=== PATIENT | male | born 1965 | race American Indian/Alaskan Native ===

== ENCOUNTER 2017-05-21 07:33 | Emergency (ER) | payer OTHER ==
[2017-05-21 07:41] VITALS: RESP 18
--- NOTE | 2017-05-21 08:09 | C.PDOC ---
History Of Present Illness 51 y/o male, hx of screws and rods in right le due to trauma many years ago c/o 2 days of pain to right freire and ankle after his 'legs gave out on him' and he fell. pt sts not taking anything for pain becuase he ran out. review of crew trainer aware shows pt filled a 30 day rx of oxycodone 15 mg on 05/05. pt denies any numbness or tingling. pt is poor historian and answers vaguely. Time Seen by Provider: 05/21/17 07:45 Chief Complaint (Nursing): Lower Extremity Problem/Injury History Per: Patient History/Exam Limitations: no limitations Onset/Duration Of Symptoms: Days (2) Current Symptoms Are (Timing): Still Present Severity: Moderate Recent travel outside of the [place]: No Past Medical History Reviewed: Historical Data, Nursing Documentation, Vital Signs Vital Signs: Last Vital Signs Temp 97.7 F 05/21/17 10:23 Pulse 99 H 05/21/17 10:23 Resp 18 05/21/17 10:23 BP 145/94 H 05/21/17 10:23 Pulse Ox 100 05/21/17 10:59 - Medical History PMH: No Chronic Diseases Surgical History: Appendectomy Other Surgeries: right leg screws in tib/fib and ankle Family History: States: Unknown Family Hx - Social History Hx Alcohol Use: No Hx Substance Use: No - Immunization History Hx Tetanus Toxoid Vaccination: Yes Hx Influenza Vaccination: Yes Hx Pneumococcal Vaccination: No Review Of Systems Musculoskeletal: Positive for: Leg Pain (right), Foot Pain (right) Neurological: Negative for: Weakness, Numbness Physical Exam - Physical Exam Appears: Non-toxic, No Acute Distress Skin: Normal Color, Warm, Dry Extremity: Other (tender along right tibia, tender with mild swelling to diffuse ankle. from at knee. ) Pulses: Left Dorsalis Pedis: Normal, Right Dorsalis Pedis: Normal Neurological/Psych: Oriented x3, Normal Speech, Normal Cognition ED Course And Treatment O2 Sat by Pulse Oximetry: 100 Medical Decision Making Medical Decision Making: pt c/o knee and ankle pain in leg with multiple screws; will get xray to f/o shift of hardware. crew trainer aware checked; see below. 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 05/05/2017 1 05/05/2017 OXYCODONE HCL 15 MG TABLET 90.0 30 DU JACKIE [id number] [facility] ([id number]) 0 67.5 [place] 04/07/2017 1 04/07/2017 OXYCODONE HCL 15 MG TABLET 90.0 30 DU JACKIE [id number] [facility] ([id number]) 0 67.[place] 03/07/2017 1 03/07/2017 OXYCODONE HCL 15 MG TABLET 90.0 30 DU JACKIE [id number] [facility] ([id number]) 0 67.5 [place] 02/04/2017 1 02/04/2017 OXYCODONE HCL 15 MG TABLET 90.0 30 DU JACKIE [id number] [facility] ([id number]) 0 67.5 [place] 01/06/2017 2 01/06/2017 OXYCODONE HCL 15 MG TABLET 90.0 30 DU JACKIE [id number] [facility] ([id number]) 0 67.5 [place] 12/09/2016 1 12/09/2016 OXYCODONE HCL 15 MG TABLET 90.0 30 DU JACKIE [id number] [facility] ([id number]) 0 67.5 [place] 11/04/2016 1 11/04/2016 OXYCODONE HCL 15 MG TABLET 90.0 30 DU JACKIE [id number] [facility] ([id number]) 0 67.5 [place] 10/07/2016 1 10/05/2016 OXYCODONE HCL 15 MG TABLET 90.0 30 DU JACKIE [id number] [facility] ([id number]) 0 67.5 [place] 09/06/2016 1 09/06/2016 OXYCODONE HCL 15 MG TABLET 90.0 30 DU JACKIE [id number] [facility] ([id number]) 0 67.5 [place] 08/05/2016 1 08/05/2016 OXYCODONE HCL 15 MG TABLET 90.0 30 DU JACKIE [id number] [facility] ([id number]) 0 67.5 [place] 07/08/2016 1 07/08/2016 OXYCODONE HCL 15 MG TABLET 90.0 30 DU JACKIE [id number] [facility] ([id number]) 0 67.5 [place] 06/08/2016 1 06/08/2016 OXYCODONE HCL 15 MG TABLET 90.0 30 DU JACKIE [id number] [facility] ([id number]) 0 67.5 [place] *Pharmacy is created using a combination of pharmacy name and the last four digits of the pharmacy license number. [id number] am message left for Dr Malagon [id number] am discussed with Sr Malagon; he doesn't think it's an acute fx, but recommend compression dressing with padding and mireille bandage from groin to toes with xrutches, no weight bearing, clinic f/u next week. Disposition Discussed With .: Steven Malagon III Doctor Will See Patient In The: Office Counseled Patient/Family Regarding: Studies Performed, Diagnosis, Need For Followup, Rx Given - Disposition Referrals: Steven Malagon III, MD [Staff Provider] - [facility] [Outside] Disposition: HOME/ ROUTINE Disposition Time: 10:52 Condition: IMPROVED Additional Instructions: Please do not weight bear and use crutches at all times until you are re- evaluated by Dr Malagon or in orthopedic clinic. Call for soonest appointments. Take naproxen for pain Prescriptions: Naproxen 500 mg PO BID #20 tab Instructions: Ankle Fracture (ED) Forms: [facility] (Romansh), General Discharge Instructions - Clinical Impression Clinical Impression: Ankle fracture, right
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
--- NOTE | 2017-05-21 08:43 | RAD ---
PROCEDURE: Right Ankle Radiographs. HISTORY: s/p fall diffuse pain COMPARISON: None FINDINGS: BONES: Status post orthopedic fixation of tibial fracture. There is an oblique fracture of the distal tibia, intra-articular, possibly acute. Healed distal fibular diaphysis fracture noted. Intramedullary cari in tibial diaphysis. Orthopedic hardware grossly intact. Talar dome is smooth. Ankle mortise is slightly widened. . JOINTS: As above, possible intra-articular fracture. SOFT TISSUES: Normal. OTHER FINDINGS: None. IMPRESSION: Possible acute intra-articular distal tibial fracture. Orthopedic hardware from prior fixation.
[2017-05-21 10:24] VITALS: BP 145/94; PULSE 99; TEMP 97.7
[2017-05-21 10:49] VITALS: O2SAT 100
== END 2017-05-21 11:50 | disposition home or self-care (01) ==
LOC: C.ER 07:33
DX: S82.891A Other fracture of right lower leg, initial encounter for closed fracture (principal); W18.30XA Fall on same level, unspecified, initial encounter
CPT/HCPCS: 73590; 73610; 96372; 97116; 97161; 99285; G8978; G8979; G8980; J1885